=== PATIENT | female | born 2000 | race Caucasian/White ===

== ENCOUNTER 2022-03-24 16:52 | Emergency (ER) | payer OTHER, SELFPAY ==
--- NOTE | 2022-03-24 17:01 | ED.WOUNDLAC ---
HPI - Wound/Laceration General Chief Complaint: Wound/Laceration Stated Complaint: finger lac Time Seen by Provider: 03/24/22 17:05 Source: patient and RN notes reviewed Mode of arrival: ambulatory Limitations: no limitations History of Present Illness HPI narrative: 21-year-old female presents with concern for injury to the second digit of the left hand. She sustained the injury while peeling potatoes. She reports she is up-to-date on her tetanus vaccination. She reports the incident happened 2 hours ago and the wound continues to bleed despite pressure and dressing Extremity Location: Left: hand Related Data Allergies Allergy/AdvReac Type Severity Reaction Status Date / Time No Known Allergies Allergy Verified 03/24/22 17:05 Review of Systems Review of Systems: CONSTITUTIONAL: Denies malaise, chills, sweats, or fever. SKIN: Reports bleeding wound to the distal second digit of the left hand MUSCULOSKELETAL: Denies muscle skeletal pain NEUROLOGIC: Denies numbness, weakness All systems reviewed & are unremarkable except as noted in HPI and below PMFSH Comments At time of signature, agree with nursing past medical, surgical, social and family history. There is no relevant family history pertinent to the presenting complaint Exam Narrative: GENERAL: Well-appearing, well-nourished, and in no acute distress. HEAD: Normocephalic, atraumatic. EYES: PERRLA, conjunctivae clear ENT: Mucous membranes moist. NECK: Supple. No lymphadenopathy CHEST: Clear to auscultation. No respiratory distress. HEART: Regular rate and rhythm. SKIN: Warm, dry. 0.5 cm diameter skin avulsion noted to the tip of the second digit of the left hand with small amount of bleeding NEURO: Alert and oriented x3. PSYCH: Normal mood and affect Course Course Emergency Course: Wound was cleansed. After cleansing and bleeding decreased. Surgicel applied, hemostasis achieved, sterile dressing applied. Patient is aware of diagnosis, understands and agrees to treatment plan. Anticipatory guidance given. Patient agrees to follow-up as directed and is aware of reasons to seek care at the emergency department. Portions of this record may have been created with voice recognition software Level of Care: Express Care Visit Vital Signs Vital signs: Reviewed. MDM - Wound/Laceration MDM Narrative Medical decision making narrative: Exam findings show no acute concerns or changes; patient is non-toxic appearing and is in no distress. Patient is appropriate for outpatient treatment and follow-up. Differential Diagnosis Differential diagnosis: Likely laceration, abrasion and avulsion of skin Critical Care Time Critical Care Time Critical Care Time: No Discharge Plan Discharge Clinical Impression: Avulsion of skin Patient Disposition: Home, Self-Care Condition: Stable Instructions: Skin Avulsion (ED) Additional Instructions: Keep your dressing in place for 24 hours. If you notice any bleeding through the dressing, apply pressure and seek medical attention. In 24 hours remove the outer layer of the dressing carefully, soak the inner layer of the dressing in warm water until it dislodges from the skin. After that please wash the wound carefully and warm soap and water twice daily, apply Neosporin twice daily and bandage as needed. If bleeding resumes after remove the dressing you may reapply the Surgicel as needed and repeat the process. If you have any concerns for infection such as redness, swelling, purulent drainage return for reevaluation. Follow-up/Referrals: PHYSICIAN,[facility] [Primary Care Provider] - Time of Disposition: 17:24
[2022-03-24 17:16] VITALS: BP 130/84; PULSE 108; RESP 16; TEMP 37.4; O2SAT 99
== END 2022-03-24 17:34 | disposition home or self-care (01) ==
PROVIDERS: Emergency Provider Nurse Practitioner
DX: S61.201A Unspecified open wound of left index finger without damage to nail, initial encounter (principal); X58.XXXA Exposure to other specified factors, initial encounter; Y93.G1 Activity, food preparation and clean up
CPT/HCPCS: 99212; G0463

== ENCOUNTER 2023-03-22 17:42 | Outpatient (CLI) | payer OTHER, SELFPAY ==
[2023-03-22] VITALS (7 sets, daily range): BP systolic 106–122; BP diastolic 57–63; PULSE 73–93
[2023-03-22 18:47] LABS: Basophils Percent Auto 0.2 % (0.2-1.2); Eosinophils Absolute Auto 0.2 K/mm3 (0-0.3); Eosinophils Percent Auto 2.2 % (0-4.4); Hematocrit 33.8 % (37.0-47.0); Hemoglobin 11.3 g/dL (12.0-15.0); Immature Granulocyte Absolute 0.04 K/mm3 (0.00-0.031); Immature Granulocyte Percent A 0.5 % (0-0.5); Lymphocytes Absolute Auto 1.51 K/mm3 (0.9-3.2); Lymphocytes Percent Auto 18.1 % (18.3-44.2); Mean Corpuscular HGB Conc 33.4 g/dl (32-36); Mean Corpuscular Hemoglobin 32.2 pg (26-34); Mean Corpuscular Volume 96.3 fl (80-100); Mean Platelet Volume 12.3 fl (7.4-10.4); Monocytes Absolute Auto 0.7 K/mm3 (0.1-0.6); Monocytes Percent Auto 8.7 % (2.6-8.5); Neutrophils Absolute Auto 5.9 K/mm3 (1.3-6.7); Neutrophils Percent Auto 70.3 % (45.5-73.1); Platelet Count Result 156 k/mm3 (150-375); Red Blood Count 3.51 M/mm3 (4.2-5.4); Red Cell Distribution Width 13.5 % (11.5-14.5); White Blood Count 8.4 K/mm3 (4.5-10.0)
[2023-03-22 19:05] LABS: Alanine Aminotransferase 25 U/L (6-35); Albumin Level 3.6 g/dL (3.5-5.1); Alkaline Phosphatase 84 U/L (38-126); Anion Gap 5 mmol/L (8-16); Aspartate Amino Transferase 25 U/L (14-36); Bilirubin,Total 1.1 mg/dL (0.2-1.3); Blood Urea Nitrogen 10 mg/dL (7-17); Calcium 9.2 mg/dL (8.4-10.2); Carbon Dioxide 23 mmol/L (22-30); Chloride 107 mmol/L (98-107); Estimated Glomerular Filt Rate > 60; Glucose 90 mg/dL (65-110); Potassium 3.7 mmol/L (3.4-5.0); Sodium 135 mmol/L (137-145); Uric Acid 3.8 mg/dL (2.5-7.5)
[2023-03-22 19:17] LABS: Appearance Urine Cloudy (Clear); Bacteria Urine 1+ /hpf; Bilirubin Urine Negative (Negative); Blood Urine Negative (Negative); Color Urine Yellow (Yellow); Glucose Urine UA Negative (Negative); Ketones Urine Trace mg/dL (Negative); Leukocyte Esterase Ur 1+ LEU/UL (NEGATIVE); Mucus Urine Present /lpf; Nitrate Urine Negative (Negative); Non Pathogenic Casts 0-2; Protein Urine Negative (Negative); RBC Urine 0-2 /hpf (0-2); Specific Grav Ur 1.017 (1.001-1.035); Squamous Epithelial Cell Urine Occasional /hpf (Few)
[2023-03-22 19:18] LABS: Add Urine Microscopic? YES
[2023-03-22 19:58] LABS: Creatinine Urine 84.4 mg/dL; Total Protein Urine Random 10 mg/dL; Ur Ttl Prot Creatinine Ratio 0.12 mg/mg (0-0.20)
--- NOTE | 2023-03-22 20:02 | PC.NURSE ---
Dr Vergara called via assembly instructions writer and informed of lab results, CAT1 tracing, and BP readings. Orders received to DC pt to home
== END 2023-03-22 20:05 | disposition home or self-care (01) ==
LOC: ANHOBOP 18:00 → ANHOBPP 18:01
PROVIDERS: Obstetrics & Gynecology; PCP Emergency Medicine; Visit Provider Obstetrics & Gynecology
DX: O99.891 Other specified diseases and conditions complicating pregnancy (principal); R42 Dizziness and giddiness
CPT/HCPCS: 36415; 59025; 80053; 81001; 82570; 84156; 84550; 85025; 87086; 99199

== ENCOUNTER 2023-04-20 15:52 | Inpatient (IN) | payer OTHER, SELFPAY ==
[2023-04-20 16:22] VITALS: BP 123/69; PULSE 84
--- NOTE | 2023-04-20 16:59 | LDADM ---
This patient, Demetrius Guillermo, was admitted to Labor/Delivery/Recovery 104 on 04/20/23 at 15:52. Plans for labor, pain management and were discussed with patient. Patient/family oriented to hospital policies and general routines including ID bracelet, bed and alarms, visiting hours, pain management, procedures, bathroom and other care routines, personal items, smoking policy, room service/diet and guest tray routines, security routines, and visiting hours. Patient/Family are encouraged to report perceived risks to care and to ask questions if they do not understand what they are told or what they should do. See OBIX for further documentation.
[2023-04-20 17:04] LABS: Basophils Percent Auto 0.2 % (0.2-1.2); Eosinophils Absolute Auto 0.2 K/mm3 (0-0.3); Eosinophils Percent Auto 1.6 % (0-4.4); Hematocrit 36.3 % (37.0-47.0); Hemoglobin 11.9 g/dL (12.0-15.0); Immature Granulocyte Absolute 0.02 K/mm3 (0.00-0.031); Immature Granulocyte Percent A 0.2 % (0-0.5); Lymphocytes Absolute Auto 1.51 K/mm3 (0.9-3.2); Lymphocytes Percent Auto 14.9 % (18.3-44.2); Mean Corpuscular HGB Conc 32.8 g/dl (32-36); Mean Corpuscular Volume 97.6 fl (80-100); Mean Platelet Volume 12.8 fl (7.4-10.4); Monocytes Absolute Auto 0.8 K/mm3 (0.1-0.6); Monocytes Percent Auto 7.9 % (2.6-8.5); Neutrophils Absolute Auto 7.6 K/mm3 (1.3-6.7); Neutrophils Percent Auto 75.2 % (45.5-73.1); Platelet Count Result 147 k/mm3 (150-375); Red Blood Count 3.72 M/mm3 (4.2-5.4); White Blood Count 10.1 K/mm3 (4.5-10.0)
[2023-04-20 17:12] VITALS: BMI 39.4
[2023-04-20] MEDS: DINOPROSTONE 10 MG VAG INSERT VAGINAL (17:16)
[2023-04-20 18:30] VITALS: TEMP 36.8
[2023-04-20 18:40] VITALS: BP 133/78; PULSE 72
[2023-04-20 22:15] VITALS: TEMP 36.8
[2023-04-21] VITALS (343 sets, daily range): BP systolic 81–146; BP diastolic 43–101; PULSE 58–175; RESP 16; TEMP 36.2–37.1; O2SAT 90–100
[2023-04-21] MEDS: fentaNYL CITRATE INJ (*CRX) 100 MCG/2 ML VIAL IV PUSH (00:12)
[2023-04-21] MEDS: LACTATED RINGERS 1,000 ML 125 ML IV CONT ×3 (06:01→14:44)
[2023-04-21 07:58] LABS: Rapid Plasma Reagin Non-Reactive (NonReactive)
[2023-04-21] MEDS: OXYTOCIN 30 UNITS/NS 500 ML 30 UNITS/500 ML BAG 6 UNITS IV CONT (08:12)
[2023-04-21] MEDS: ONDANSETRON INJ 4 MG/2 ML VIAL IV PUSH ×2 (08:45→14:43)
--- NOTE | 2023-04-21 08:55 | P.HPUP_ITS ---
History and Physical Update Update Date/Time: 04/21/23 08:55 22-year-old 1 at term who presents for elective induction of labor. Artificial rupture membranes was performed. She has epidural. She has reassuring heart rate tracings. Her cervix is 3, 50, - 2 History and Physical has been reviewed, including an updated exam of the patient. There are NO changes in the patient's condition. Risks, benefits, and alternatives have been discussed and questions answered. Patient agrees to proceed with procedure.
--- NOTE | 2023-04-21 20:45 | PM.OBPRVD ---
OB - Delivery Note Procedure Delivery date: 04/21/23 Procedure: Induction method: AROM and Per Pitocin Protocol Delivery monitor: External FHT and Internal Uterine Route of delivery: Episiotomy description: None Laceration Description: Perineal - 2nd Degree Delivery repair: vicryl Quantitative Blood Loss (ml): 300 Anesthesia type: Epidural Complications: none Baby Date of : 04/21/23 Time of : 20:22 Weeks of gestation at delivery: 39 gender: Male Weight (pounds): 7 Weight (ounces): 5 score one minute: 8 score five minutes: 9
[2023-04-21] MEDS: OXYTOCIN 30 UNITS/NS 500 ML 30 UNITS/500 ML BAG 125 UNITS IV CONT (20:52)
[2023-04-21] MEDS: BENZOCAINE 20% AER SPR (*SP) 56 GM CAN 1 SPRAY TOPICAL (23:10)
[2023-04-21] MEDS: WITCH HAZEL 40 PADS 1 PAD TOPICAL (23:10)
--- NOTE | 2023-04-21 23:25 | PC.NURSE ---
Patient transferred to post room # 279 via (W/C). Support person present. Oriented to unit, room, information board, rooming in, admission packet and security measures. Patient verbalizes understanding.
[2023-04-22 04:32] VITALS: BP 118/64; PULSE 62; RESP 16; TEMP 36.8; O2SAT 96
[2023-04-22 05:47] LABS: Hematocrit 28.3 % (37.0-47.0); Hemoglobin 9.3 g/dL (12.0-15.0)
[2023-04-22 07:35] VITALS: BP 117/72; PULSE 91; RESP 16; TEMP 37.3; O2SAT 100
--- NOTE | 2023-04-22 07:41 | PM.OBPNVD ---
OB - PN: Subj Subjective Date/time seen: 04/22/23 07:41 s/p vaginal delivery day 1 pain managed bottle feeding OB - PN: Obj Data Labs 04/22/23 05:01 Labs: Laboratory Results - last 24 hr 04/20/23 04/22/23 16:36 05:01 Hgb 9.3 L Hct 28.3 L RPR Non-reactive OB - PN A/P Plan day: 1 Plan: routine care Time Spent With Patient Time: Total time spent is greater than 50% in coordination of care (as documented) at patient's floor/unit and/or counseling patient: Review of Systems Review of Systems: All systems reviewed & are unremarkable except as noted in HPI and below Exam Const: General: cooperative and healthy appearing Chest: Chest palpation & inspection: normal inspection of the chest Resp: Effort & Inspection: normal respiratory effort Cardio: Rate: regular rate Rhythm: regular rhythm GI: Other: soft Skin: General skin exam: normal color Extrem: Right lower extremity: normal to inspection Left lower extremity: normal to inspection
--- NOTE | 2023-04-22 08:45 | PC.NURSE ---
PT introductions made and plan of care discussed per post , pain management, breast feeding, daily care activities. PT and fob both recipients of such instructions and no barriers to learning identified at this time. PT received such instructions per one to one discussion, mom baby care guide and demonstrations this shift PT verbalized understanding of such care.
[2023-04-22 08:50] VITALS: PULSE 91; RESP 16; O2SAT 100
[2023-04-22] MEDS: DOCUSATE SODIUM 100 MG CAPSULE PO ×2 (08:54→17:27)
[2023-04-22] MEDS: MULTIVIT/MIN/PREN/FOL AC/IRON TABLET 1 TAB PO (08:55)
[2023-04-22] MEDS: LANOLIN (LANSINOH) 7.5 GM CREAM 1 APPLIC TOPICAL (08:55)
[2023-04-22] MEDS: ACETAMINOPHEN 325 MG TABLET 650 MG PO ×2 (08:56→17:27)
[2023-04-22] MEDS: IBUPROFEN 600 MG TABLET PO ×2 (08:56→17:28)
[2023-04-22] MEDS: POLYSACCHARIDE IRON COMPLEX 150 MG CAPSULE PO ×2 (08:58→17:27)
[2023-04-22 12:09] VITALS: BP 115/67; PULSE 83; RESP 16; TEMP 36.7; O2SAT 99
[2023-04-22 19:48] VITALS: BP 118/60; PULSE 88; RESP 18; TEMP 36.5; O2SAT 99
[2023-04-23 07:15] VITALS: BP 120/80; PULSE 90; RESP 16; TEMP 36.6; O2SAT 97
--- NOTE | 2023-04-23 07:15 | PC.NURSE ---
Patient viewed the discharge video Mother & Baby Care, The First Two Weeks . Patient was given the opportunity and encouraged to ask questions. Patient verbalized understanding of information shared and has been given the mother/baby guide for home reference.
[2023-04-23] MEDS: IBUPROFEN 600 MG TABLET PO (07:23)
[2023-04-23] MEDS: POLYSACCHARIDE IRON COMPLEX 150 MG CAPSULE PO (07:23)
[2023-04-23] MEDS: DOCUSATE SODIUM 100 MG CAPSULE PO (07:23)
[2023-04-23] MEDS: ACETAMINOPHEN 325 MG TABLET 650 MG PO (07:23)
[2023-04-23] MEDS: MULTIVIT/MIN/PREN/FOL AC/IRON TABLET 1 TAB PO (07:24)
--- NOTE | 2023-04-23 08:05 | PM.OBPNVD ---
OB - PN: Subj Subjective Date/time seen: 04/23/23 08:05 Patient comments: no complaints, pain well controlled and tolerating diet OB - PN: Obj Data Labs 04/22/23 05:01 OB - PN A/P Plan day: 2 Plan: routine care and discharge home Time Spent With Patient Time: Total time spent is greater than 50% in coordination of care (as documented) at patient's floor/unit and/or counseling patient: Exam Const: General: comfortable and no acute distress Resp: Effort & Inspection: normal respiratory effort Auscultation: no rales, no rhonchi and no wheezes Cardio: Rate: regular rate Heart sounds: no click, no murmurs and no rubs GI: GI Palp: Yes Soft to palpation and No Tenderness to palpation present (GI) Auscultation: normal bowel sounds Extrem: General: normal to inspection, no pedal edema and no calf tenderness
--- NOTE | 2023-04-23 08:06 | PM.OBDSVD ---
DS: Admitting Diagnosis Discharge Date April 23, 2023 Admitting Diagnosis term DS: Discharge Diagnosis Discharge Diagnosis (1) Term delivered: Code(s): O80 - Encounter for full-term uncomplicated delivery Status: Acute OB - DS: Summary OB Procedures : None OB Procedures Intrapartum: Spontaneous Vag Delivery OB Procedures: : None Time Spent with Patient Time attestation: Total time spent providing and/or coordinating discharge services: Discharge Plan Discharge Attending physician on discharge: Miles Vergara Discharging Clinician: Miles Vergara Patient Disposition: Home, Self-Care Activity: pelvic rest Diet: regular Patient Instructions: Antibiotic Form Stand Alone Forms: General Discharge Information Follow-up/Referrals: Miles Vergara MD [Physician] - Discharge Medications: Continued cetirizine [Zyrtec] 10 mg Tablet 10 mg PO DAILY #2 Tablet 1 tablet PO DAILY Date of admission: 04/20/23 15:52 Primary Care Provider: Alvarez Hazel Admitting Provider: Miles Vergara Attending physician on admission: Miles Vergara Condition: Stable
[2023-04-23] MEDS: TETANUS,DIPHTHERIA,AC PERTUSSIS ADULT (0.5 ML) BOOSTRIX IM (10:41)
[2023-04-23] MEDS: MEASLES,MUMPS,RUBELLA VACCINE 0.5 ML VIAL SUB-Q (10:41)
[2023-04-25 10:32] VITALS: BP 132/87; PULSE 78; RESP 18; TEMP 36.7; O2SAT 100
== END 2023-04-23 12:40 | disposition home or self-care (01) | DRG 807 ==
LOC: ANHLDR 15:54 → ANHOB2 04-21 23:28
PROVIDERS: Admitting Provider Obstetrics & Gynecology; PCP Emergency Medicine; Visit Provider Obstetrics & Gynecology
DX: O69.81X0 Labor and delivery complicated by cord around neck, without compression, not applicable or unspecified (principal); Z37.0 Single live birth; Z3A.40 40 weeks gestation of pregnancy; O70.1 Second degree perineal laceration during delivery
CPT/HCPCS: 36415; 85014; 85018; 85025; 86592; 86850; 86900; 86901; 90710; 90715; A9270; J2405; J2590; J2795; J3010; J7120

== ENCOUNTER 2024-06-13 15:46 | Observation (INO) | payer BC, SELFPAY ==
[2024-06-13] VITALS (8 sets, daily range): BP systolic 122–128; BP diastolic 72–84; PULSE 96–133; RESP 16–21; TEMP 36.4; O2SAT 96–100; BMI 37.9
--- NOTE | ~2024-06-13 | XR_ITS ---
EXAMINATION: XR chest 1V portable DATE: 06/13/2024 16:36 INDICATION: Cough. . TECHNIQUE: A single frontal view of the chest was obtained. COMPARISON: None. FINDINGS: There are airspace opacities in left lower lung zone. No pleural effusion or pneumothorax. The heart size is normal. IMPRESSION: 1. Airspace opacities in left lower lung zone, consistent with atelectasis versus pneumonia. Reviewed, dictated and finalized at location A. IMPRESSION: 1. Airspace opacities in left lower lung zone, consistent with atelectasis vers us pneumonia.
--- NOTE | ~2024-06-13 | US_ITS ---
EXAMINATION: US OB follow up DATE: 06/14/2024 11:39 INDICATION: Assess well-being and growth TECHNIQUE: Real-time ultrasound of the pelvis was performed. The interpreting radiologist was not pre sent for the study. COMPARISON: None. FINDINGS: There is a single living fetus in variable presentation. The placenta is anterior with caudal margin 3.6 cm from the internal cervical os. Cervical length measures 5.4 cm. heart rate is 155 beats per minute (bpm). The amniotic fluid index is 8.4 cm, which is normal. The following biometric data were obtained: BPD: 3.8 cm -> 17 weeks 4 days Head circumference: 1 cm -> 3.917 weeks 2 days Abdominal circumference: 11.8 cm -> 17 weeks 4 days Femur length: 2.5 cm -> 17 weeks 4 days These measurements are concordant. Head circumference to abdominal circumference ratio: 1.17 (normal range 1.08-1.28). Estimated weight: 199 g (+/-) 30 g or 7 lbs. (+/-) 1 oz. IMPRESSION: 1. Single living fetus in variable presentation with heart rate of 155 bpm. 2. Gestational age by ultrasound of 17 weeks 4 day(s) +/- 1 week(s) 2 day(s) with ultrasound estimate d date of delivery (JOHN) of 11/18/2024. Estimated weight is 33rd percentile by Hadlock criteria when 11/17/2024 is used as the JOHN. Please correlate with clinical information or earlier ultrasounds for most accurate JOHN. 3. Normal amniotic fluid index of 8.4 cm. Reviewed, dictated and finalized at location B. IMPRESSION: 1. Single living fetus in variable presentation with heart rate of 155 bp m. 2. Gestational age by ultrasound of 17 weeks 4 day(s) +/- 1 week(s) 2 day(s) wi th ultrasound estimated date of delivery (JOHN) of 11/18/2024. Estimated we ight is 33rd percentile by Hadlock criteria when 11/17/2024 is used as the JOHN. Please correlate with clinical information or earlier ultrasounds for most accu rate JOHN. 3. Normal amniotic fluid index of 8.4 cm.
[2024-06-13] MEDS: LEVALBUTEROL NEB 1.25 MG/3 ML INHALATION ×3 (16:13→16:45)
[2024-06-13 16:23] LABS: Basophils Percent Auto 0.6 % (0.2-1.2); Eosinophils Absolute Auto 0.3 K/mm3 (0-0.3); Eosinophils Percent Auto 3.8 % (0-4.4); Hematocrit 35.9 % (37.0-47.0); Hemoglobin 12.2 g/dL (12.0-15.0); Immature Granulocyte Absolute 0.02 K/mm3 (0.00-0.031); Immature Granulocyte Percent A 0.3 % (0-0.5); Lymphocytes Absolute Auto 2.13 K/mm3 (0.9-3.2); Lymphocytes Percent Auto 30.8 % (18.3-44.2); Mean Corpuscular Hemoglobin 30.7 pg (26-34); Mean Corpuscular Volume 90.4 fl (80-100); Mean Platelet Volume 10.8 fl (7.4-10.4); Monocytes Absolute Auto 0.6 K/mm3 (0.1-0.6); Monocytes Percent Auto 9.1 % (2.6-8.5); Neutrophils Absolute Auto 3.8 K/mm3 (1.3-6.7); Neutrophils Percent Auto 55.4 % (45.5-73.1); Platelet Count Result 207 k/mm3 (150-375); Red Blood Count 3.97 M/mm3 (4.2-5.4); Red Cell Distribution Width 12.6 % (11.5-14.5); White Blood Count 6.9 K/mm3 (4.5-10.0)
[2024-06-13] MEDS: SODIUM CHLORIDE 0.9% IV 1,000 ML 999 ML IV CONT ×2 (16:26→17:46)
[2024-06-13 16:33] LABS: Alanine Aminotransferase 14 U/L (6-35); Albumin Level 3.7 g/dL (3.5-5.1); Alkaline Phosphatase 83 U/L (38-126); Anion Gap 8 mmol/L (4-12); Aspartate Amino Transferase 20 U/L (14-36); Bilirubin,Total 0.6 mg/dL (0.2-1.3); Blood Urea Nitrogen 9 mg/dL (7-17); Calcium 8.5 mg/dL (8.4-10.2); Carbon Dioxide 24 mmol/L (22-30); Chloride 104 mmol/L (98-107); Estimated Glomerular Filt Rate > 60; Glucose 102 mg/dL (65-110); Potassium 3.6 mmol/L (3.4-5.0); Sodium 136 mmol/L (137-145)
[2024-06-13 16:59] LABS: Influenza A QL RT-PCR Negative (Negative); Influenza B QL RT-PCR Negative (Negative); RSV RNA, RT-PCR Negative (Negative); SARS-CoV-2 RNA PCR Negative (Negative)
--- NOTE | 2024-06-13 17:31 | ED.SOB ---
HPI - SOB/Dyspnea General Chief Complaint: Shortness of Breath/Dyspnea Stated Complaint: dyspnea Time Seen by Provider: 06/13/24 15:50 History of Present Illness HPI Narrative: Patient is a 23-year-old female who presents ER with shortness of breath and cough. Patient was seen at [facility] diagnosed with pneumonia and prescribed amoxicillin. This was earlier today. Patient reports her shortness of breath feels like it is getting worse so she came to the ER. She is 17 weeks and is cared for by [facility] [place]. No chest pain or chest pressure. No sinus congestion or sore throat. Cough is nonproductive. No known sick contacts. . Related Data Home Medications Medication Instructions Recorded Confirmed cetirizine 10 mg tablet (Zyrtec) 10 mg PO DAILY 03/24/23 04/20/23 prenat.vits,cynthia,[id number]-[id number] 1 tablet PO DAILY 03/24/23 04/20/23 Allergies Allergy/AdvReac Type Severity Reaction Status Date / Time No Known Allergies Allergy Verified 06/13/24 18:13 Review of Systems Review of Systems: All systems reviewed & are unremarkable except as noted in HPI and below Constitutional: Constitutional: Denies chills, Reports fatigue and Denies fever(s) ENT: Reports system reviewed and no additional complaints, except as documented Cardiovascular: Cardiovascular: Reports no additional cardiovascular complaints Respiratory: Respiratory: Reports chest congestion, Reports cough, Reports dyspnea and Reports wheezing Gastrointestinal: Gastrointestinal: Reports no additional gastrointestinal complaints [facility] Family History Family History (Updated 03/24/23 @ 14:40 by Amna Geller RN) Other Patient denies significant medical history Social History Social History Smoking status: Never smoker Second hand tobacco smoke exposure: No Substance use: never Lack of Transportation: No Lack of Food: Never True Current Housing: I Have Housing Concerned About Future Housing: No Difficulty Paying Gas/Electric Bills: No Difficulty Paying for Meds: No Currently Unemployed: No Education: High School Diploma/GED Difficulty w/ Childcare or Family Care: No Spiritual care concerns: No Exam Narrative: GENERAL: Well-appearing, well-nourished, and in no acute distress. HEAD: Normocephalic, atraumatic. EYES: PERRL and EOMI. ENT: Nares clear, no rhinorrhea or epistaxis. Mucous membranes moist. NECK: Supple. CHEST: Coarse rales and wheezing throughout worse on the left. No respiratory distress. HEART: tachycardic and regular. Normal peripheral pulses. ABDOMEN: Soft, nontender, nondistended. EXTREMITIES: Normal range of motion. No edema. SKIN: Warm, dry, no rash. NEURO:Alert and oriented x3. PSYCH: Normal mood and affect. Course Course Emergency Course: Improvement of right-sided lung sounds after nebulizer treatment. Patient still with rales in the left sign. Persistent tachycardia after 1L NS. Discussed with patient's Ob and will admit for observation IV antibiotics. Vital Signs Vital signs: Vital Signs Temperature 97.5 F L 06/13/24 15:48 Pulse Rate 124 H 06/13/24 15:48 Respiratory Rate 20 06/13/24 15:48 Blood Pressure 128/84 06/13/24 15:48 Pulse Oximetry 100 06/13/24 15:48 Temperature 97.5 F L 06/13/24 15:48 Pulse Rate 118 H 06/13/24 16:45 Respiratory Rate 21 H 06/13/24 16:45 Blood Pressure 128/84 06/13/24 15:48 Pulse Oximetry 100 06/13/24 15:48 Oxygen Delivery Room Air 06/13/24 16:25 MDM - SOB/Dyspnea Lab Data 06/13/24 16:19 06/13/24 16:19 Labs: Lab Results 06/13/24 Range/Units 16:19 WBC 6.9 (4.5-10.0) K/mm3 RBC 3.97 L (4.2-5.4) M/mm3 Hgb 12.2 (12.0-15.0) g/dL Hct 35.9 L (37.0-47.0) % MCV 90.4 (80-100) fl MCH 30.7 (26-34) pg MCHC 34.0 (32-36) g/dl RDW 12.6 (11.5-14.5) % Plt Count 207 (150-375) k/mm3 MPV 10.8 H (7.4-10.4) fl Immature G
[2024-06-13] MEDS: AZITHROMYCIN 500 MG/NS 250 ML 500 MG/250 ML BAG 250 MG IVPB (19:10)
--- NOTE | 2024-06-13 19:29 | ADMGEN ---
This patient, Demetrius Guillermo, was admitted to Medical Room 257-01. Patient/family oriented to hospital policies and general routines including ID bracelet, bed and alarms, visiting hours, pain management, procedures, bathroom and other care routines, personal items, smoking policy, room service/diet, and visiting hours. Information on how to activate the Rapid Response Team has been discussed. Patient/Family are encouraged to report perceived risks to care and to ask questions if they do not understand what they are told or what they should do.
[2024-06-13] MEDS: ACETAMINOPHEN 325 MG TABLET 650 MG PO (20:18)
[2024-06-13] MEDS: SODIUM CHLORIDE 0.9% IV 1,000 ML 125 ML IV CONT (20:19)
[2024-06-13] MEDS: LEVALBUTEROL NEB 1.25 MG/3 ML 0.63 MG INHALATION (20:38)
[2024-06-14] VITALS (11 sets, daily range): BP systolic 119–132; BP diastolic 66–70; PULSE 77–95; RESP 16–19; TEMP 36.6–36.8; O2SAT 98–100
[2024-06-14] MEDS: LEVALBUTEROL NEB 1.25 MG/3 ML 0.63 MG INHALATION ×4 (01:00→21:00)
[2024-06-14] MEDS: ACETAMINOPHEN 325 MG TABLET 650 MG PO ×2 (04:24→14:10)
[2024-06-14] MEDS: SODIUM CHLORIDE 0.9% IV 1,000 ML 125 ML IV CONT ×2 (04:25→15:14)
--- NOTE | 2024-06-14 08:38 | PM.IMHP ---
H&P: HPI History of Present Illness Date/Time: 06/14/24 08:38 Chief Complaint: shortness of breath Narrative: 23-year-old multiparous female at 17 weeks gestation presented emergency department with shortness of breath. She had an abnormal chest x-ray. She had abnormal lung sounds. She was diagnosed pneumonia. IV antibiotics were started. She is afebrile. She denies any nausea, vomiting, chills. She does have some elevated body temperature subjectively. Denies any vaginal bleeding, cramping, loss of fluid. She will continue IV antibiotics for 24 hours and then did be discharged if she remains stable. She has normal white count, afebrile improving shortness of breath Review of Systems Review of Systems: All systems reviewed & are unremarkable except as noted in HPI and below Constitutional: Constitutional: Denies chills, Denies fatigue, Denies fever(s) and Denies weakness Eyes: Eyes: Denies blurry vision, Denies change in vision, Denies loss of peripheral vision, Denies loss of vision, Denies other visual disturbances and Denies eye pain ENT: Denies vertigo, Denies dizziness, Denies hearing loss, Denies mouth pain, Denies nasal obstruction, Denies neck mass and Denies neck pain Cardiovascular: Cardiovascular: Denies chest pain, Denies diaphoresis, Denies syncope, Denies leg edema and Denies dyspnea Respiratory: Respiratory: Denies chest congestion, Denies cough, Denies hemoptysis, Denies dyspnea and Denies wheezing Gastrointestinal: Gastrointestinal: Denies abdominal pain, Denies constipation, Denies diarrhea, Denies nausea and Denies vomiting Genitourinary: Genitourinary: Denies hematuria, Denies change in libido, Denies nocturia, Denies genital lesions, Denies flank pain and Denies urinary urgency Musculoskeletal: Musculoskeletal: Denies abnormal gait, Denies back pain, Denies myalgias, Denies arthralgias, Denies joint swelling, Denies muscle weakness and Denies neck pain Integumentary/Breasts: Skin/Breast: Denies swelling, Denies breast pain, Denies breast mass, Denies dry skin, Denies nipple discharge, Denies unusual bruising and Denies jaundice Neurologic: Denies Neuro-related abnormal movements, Denies Abnormal speech present, Denies abnormal gait, Denies behavioral changes, Denies confusion, Denies vertigo, Denies dizziness, Denies syncope, Denies loss of vision, Denies memory loss, Denies convulsions and Denies weakness Psychiatric: Psychiatric: Denies abnormal sleep pattern, Denies behavioral changes, Denies change in libido, Denies confusion, Denies depression, Denies anhedonia and Denies memory loss Endocrine: Endocrine: Reports no additional endocrine complaints, Denies change in libido and Denies fatigue Hematologic/Lymphatic: Hematologic/Lymphatic: Reports no additional hematologic/lymphatic complaints Allergic/Immunologic: Allergic/Immunologic: Reports no additional allergic/immunologic complaints and Denies wheezing [facility] Family History Family History (Updated 06/13/24 @ 19:54 by Lorenza Connolly RN) Father Hypertension Sleep apnea Social History Social History Smoking status: Never smoker Second hand tobacco smoke exposure: No Alcohol intake: never Substance use: never Substance use type: does not use Do You Feel Safe in your Home?: Yes Lack of Transportation: No Lack of Food: Never True Current Housing: I Have Housing Concerned About Future Housing: No Difficulty Paying Gas/Electric Bills: No Difficulty Paying for Meds: No Currently Unemployed: No Education: High School Diploma/GED Difficulty w/ Childcare or Family Care: No Spiritual care concerns: No Meds Home Medications and Allergies Home Medications Medication Instructions Recorded Confirmed Type cetirizine 10 mg tablet (Zyrtec) 10 mg PO DAILY 03/24/23 06/13/24 History prenat.vits,cynthia,[id number] 1 tablet PO DAILY 03/24/23 06/13/24 History Allergies Allergy/AdvReac Type Severity Reactio
[2024-06-14 09:31] LABS: Basophils Percent Auto 0.4 % (0.2-1.2); Eosinophils Absolute Auto 0.2 K/mm3 (0-0.3); Eosinophils Percent Auto 3.2 % (0-4.4); Hematocrit 32.4 % (37.0-47.0); Hemoglobin 10.4 g/dL (12.0-15.0); Immature Granulocyte Absolute 0.01 K/mm3 (0.00-0.031); Immature Granulocyte Percent A 0.2 % (0-0.5); Lymphocytes Absolute Auto 1.52 K/mm3 (0.9-3.2); Mean Corpuscular HGB Conc 32.1 g/dl (32-36); Mean Corpuscular Hemoglobin 30.4 pg (26-34); Mean Corpuscular Volume 94.7 fl (80-100); Mean Platelet Volume 11.3 fl (7.4-10.4); Monocytes Absolute Auto 0.2 K/mm3 (0.1-0.6); Monocytes Percent Auto 3.2 % (2.6-8.5); Neutrophils Absolute Auto 3.4 K/mm3 (1.3-6.7); Platelet Count Result 180 k/mm3 (150-375); Red Blood Count 3.42 M/mm3 (4.2-5.4); Red Cell Distribution Width 13.1 % (11.5-14.5); White Blood Count 5.3 K/mm3 (4.5-10.0)
[2024-06-14] MEDS: AZITHROMYCIN 500 MG/NS 250 ML 500 MG/250 ML BAG 250 MG IVPB (19:15)
[2024-06-15 02:51] VITALS: PULSE 76; RESP 18
[2024-06-15] MEDS: LEVALBUTEROL NEB 1.25 MG/3 ML 0.63 MG INHALATION ×2 (02:51→09:22)
[2024-06-15 06:00] VITALS: BP 123/57; PULSE 62; RESP 18; TEMP 36.6; O2SAT 98
[2024-06-15 08:54] LABS: Basophils Percent Auto 0.4 % (0.2-1.2); Eosinophils Absolute Auto 0.2 K/mm3 (0-0.3); Eosinophils Percent Auto 2.6 % (0-4.4); Hematocrit 32.6 % (37.0-47.0); Hemoglobin 10.8 g/dL (12.0-15.0); Immature Granulocyte Absolute 0.03 K/mm3 (0.00-0.031); Immature Granulocyte Percent A 0.4 % (0-0.5); Lymphocytes Absolute Auto 1.92 K/mm3 (0.9-3.2); Lymphocytes Percent Auto 25.2 % (18.3-44.2); Mean Corpuscular HGB Conc 33.1 g/dl (32-36); Mean Corpuscular Hemoglobin 30.6 pg (26-34); Mean Corpuscular Volume 92.4 fl (80-100); Mean Platelet Volume 10.6 fl (7.4-10.4); Monocytes Absolute Auto 0.4 K/mm3 (0.1-0.6); Monocytes Percent Auto 5.4 % (2.6-8.5); Platelet Count Result 195 k/mm3 (150-375); Red Blood Count 3.53 M/mm3 (4.2-5.4); Red Cell Distribution Width 13.1 % (11.5-14.5); White Blood Count 7.6 K/mm3 (4.5-10.0)
[2024-06-15 09:12] LABS: Alanine Aminotransferase 14 U/L (6-35); Albumin Level 3.3 g/dL (3.5-5.1); Alkaline Phosphatase 72 U/L (38-126); Anion Gap 8 mmol/L (4-12); Aspartate Amino Transferase 19 U/L (14-36); Bilirubin,Total 0.4 mg/dL (0.2-1.3); Blood Urea Nitrogen 3 mg/dL (7-17); Calcium 8.4 mg/dL (8.4-10.2); Carbon Dioxide 20 mmol/L (22-30); Chloride 108 mmol/L (98-107); Estimated CRCL calculation 174 ml/min; Estimated Glomerular Filt Rate > 60; Glucose 87 mg/dL (65-110); Potassium 3.8 mmol/L (3.4-5.0); Sodium 136 mmol/L (137-145)
--- NOTE | 2024-06-15 09:20 | PM.OBPNVD ---
OB - PN: Subj Subjective Date/time seen: 06/15/24 09:20 Interval history: HD#1 Doing better, still has cough No fevers overnight Tolerating general diet Ready for discharge home today OB - PN: Obj Data Labs 06/15/24 08:38 06/15/24 08:38 Labs: Laboratory Results - last 24 hr 06/14/24 06/15/24 09:14 08:38 WBC 5.3 7.6 RBC 3.42 L 3.53 L Hgb 10.4 L 10.8 L Hct 32.4 L 32.6 L MCV 94.7 92.4 MCH 30.4 30.6 MCHC 32.1 33.1 RDW 13.1 13.1 Plt Count 180 195 MPV 11.3 H 10.6 H Immature Gran % (Auto) 0.2 0.4 Neut % (Auto) 64.0 66.0 Lymph % (Auto) 29.0 25.2 [place] % (Auto) 3.2 5.4 Eos % (Auto) 3.2 2.6 Baso % (Auto) 0.4 0.4 Lymph # (Auto) 1.52 1.92 [place] # (Auto) 0.2 0.4 Eos # (Auto) 0.2 0.2 Baso # (Auto) 0.0 0.0 Abs Immat Gran (auto) 0.01 0.03 Absolute Neuts (auto) 3.4 5.0 Absolute Nucleated RBC 0.000 0.000 Nucleated RBC % 0.0 0.0 Sodium 136 L Potassium 3.8 Chloride 108 H Carbon Dioxide 20 L Anion Gap 8 BUN 3 L D Creatinine 0.40 L Estim Creat Clear Calc 174 Estimated GFR > 60 Glucose 87 Calcium 8.4 Total Bilirubin 0.4 AST 19 ALT 14 Alkaline Phosphatase 72 Total Protein 7.0 Albumin 3.3 L Imaging Radiologist's impression: Impressions Obstetrics Ultrasound 06/14/24 11:42 IMPRESSION: 1. Single living fetus in variable presentation with heart rate of 155 bpm. 2. Gestational age by ultrasound of 17 weeks 4 day(s) +/- 1 week(s) 2 day(s) with ultrasound estimated date of delivery (JOHN) of 11/18/2024. Estimated weight is 33rd percentile by Hadlock criteria when 11/17/2024 is used as the JOHN. Please correlate with clinical information or earlier ultrasounds for most accurate JOHN. 3. Normal amniotic fluid index of 8.4 cm. OB - PN A/P Assessment and Plan (1) Pneumonia affecting : Code(s): O99.519 - Diseases of the respiratory system complicating , unspecified trimester; J18.9 - Pneumonia, unspecified organism Status: Acute Assessment and Plan: - worsening dyspnea after diagnosis of pneumonia at - s/p IV abx x24 hours - VSS, satting well on room air - ok for discharge home; continue PO abx previously prescribed - keep OB appointment in 2 weeks Time Spent With Patient Time: Total time spent is greater than 50% in coordination of care (as documented) at patient's floor/unit and/or counseling patient: Review of Systems Review of Systems: All systems reviewed & are unremarkable except as noted in HPI and below Exam Const: General: comfortable and no acute distress Resp: Effort & Inspection: normal respiratory effort
[2024-06-15 09:23] VITALS: PULSE 86; RESP 20; O2SAT 96
[2024-06-15 09:33] VITALS: PULSE 98; RESP 20
--- NOTE | 2024-06-18 12:14 | PM.DS ---
DS: Admitting Diagnosis Discharge Date 06/15/24 Admitting Diagnosis dyspnea, pneumonia DS: Discharge Diagnosis Discharge Diagnosis (1) Pneumonia affecting : Code(s): O99.519 - Diseases of the respiratory system complicating , unspecified trimester; J18.9 - Pneumonia, unspecified organism Status: Acute DS: Summary Hospital Course Hospital Course: Patient is a 23 year old female at 17 weeks gestation who presented for worsening dyspnea and cough. She was diagnosed with pneumonia while in the ER and was admitted for IV antibiotics. She completed 24 hours of IV antibiotics with normal O2 saturations and afebrile status, and she was stable for discharge home. US was wnl while inpatient. She was discharged to complete her previously prescribed PO antibiotics. Time Spent with Patient Time attestation: Total time spent providing and/or coordinating discharge services: DS: Data Data Completed and Pending Labs on day of discharge: Preliminary micro results at discharge 06/13/24 18:38 Blood Culture - Preliminary Blood 06/13/24 18:38 Blood Culture - Preliminary Blood Discharge Plan Discharge Attending physician on discharge: Joselito Connolly Consulting providers: Ronnie Sadler Paul Discharging Clinician: Joselito Connolly Patient Disposition: Home, Self-Care Activity: may shower and as tolerated Diet: as tolerated Patient Instructions: Antibiotic Form Stand Alone Forms: General Discharge Information Follow-up/Referrals: Vinod Vergara MD [Physician] - 2 Weeks Discharge Medications: Continued cetirizine [Zyrtec] 10 mg Tablet 10 mg PO DAILY prenat.vits,cynthia,svr-[id number]-nrcft Tablet 1 tablet PO DAILY Date of admission: 06/13/24 18:01 Primary Care Provider: UNKNOWN,DOCTOR Admitting Provider: Vinod Vergara Attending physician on admission: Joselito Connolly Condition: Stable
== END 2024-06-15 12:15 | disposition home or self-care (01) ==
LOC: ANHED 17:51 → ANH2MED 19:03
PROVIDERS: Student in an Organized Health Care Education/Training Program; Admitting Provider Obstetrics & Gynecology; Emergency Provider Emergency Medicine; Visit Provider Obstetrics & Gynecology
DX: O99.512 Diseases of the respiratory system complicating pregnancy, second trimester (principal); J18.9 Pneumonia, unspecified organism; Z3A.17 17 weeks gestation of pregnancy; Z20.822 Contact with and (suspected) exposure to COVID-19
CPT/HCPCS: 36415; 71045; 76816; 80053; 83605; 85025; 87040; 87637; 94640; 96361; 96365; 96376; 99285; A9270; G0378; J0456; J0696; J7030